=== PATIENT | female | born 1975 | race Caucasian/White ===

== ENCOUNTER 2019-01-20 13:44 | Emergency (ER) | payer BC ==
[2019-01-20] MEDS ORDERED: GI Cocktail Oral Solution 30 ML PO ONE (14:05)
--- NOTE | 2019-01-20 14:15 | EDM.PDOC ---
ED HPI GENERAL MEDICAL PROBLEM - General Chief Complaint: Cardiovascular Problem Stated Complaint: CHEST PAIN ANXIETY Time Seen by Provider: 01/20/19 13:50 Source of Information: Reports: Patient, Old Records, RN, RN Notes Reviewed History Limitations: Reports: No Limitations - History of Present Illness INITIAL COMMENTS - FREE TEXT/NARRATIVE: Patient presents to the ED at [facility] for the evaluation of chest pain that started last night. She contacted her PCP who recommended ED visit. Patient is not sure if her pain is true chest pain or anxiety. She was recently started on BuSpar. She is not sure if this is working effectively or not. No SOB. No abdominal complaints. Denies N/V/D. No focal neurological complaints. Patient states her chest pain is in the mid chest area. Does not radiate. No jaw or arm/shoulder pain. No history of any cardiac disease. Patient is not sure if her pain is from anxiety or not and wants it "checked out." Onset Date: 01/19/19 ED ROS GENERAL - Review of Systems Review Of Systems: See Below Constitutional: Denies: Fever, Chills Respiratory: Denies: Shortness of Breath, Cough Cardiovascular: Reports: Chest Pain. Denies: Lightheadedness, Palpitations GI/Abdominal: Denies: Abdominal Pain, Nausea, Vomiting Skin: Reports: No Symptoms Neurological: Reports: No Symptoms Psychiatric: Reports: Anxiety ED EXAM, GENERAL - Physical Exam Exam: See Below Exam Limited By: No Limitations General Appearance: Alert, No Apparent Distress Respiratory/Chest: No Respiratory Distress, Lungs Clear, Normal Breath Sounds Cardiovascular: Normal Peripheral Pulses, Regular Rate, Rhythm Peripheral Pulses: 2+: Radial (L), Radial (R) GI/Abdominal: Normal Bowel Sounds, Soft, Non-Tender Neurological: Alert, Oriented Psychiatric: Normal Affect, Normal Mood Skin Exam: Warm, Dry, Intact, Normal Color EKG INTERPRETATION EKG Date: 01/20/19 Time: 13:56 Rhythm: NSR Rate (Beats/Min): 101 [place]: Normal P-Wave: Present QRS: Normal NV/PQ Interval: 0.16 Comparison: NA - No Prior EKG EKG Interpretation Comments: 1. Sinus Tachycardia Course - Orders/Labs/Meds Orders: Active Orders 24 hr Category Date Time Status EKG 12 Lead [EKG Documentation Completion] [RC] STAT Care 01/20/19 14:05 Active Labs: Laboratory Tests 01/20/19 01/20/19 Range/Units 14:15 14:15 WBC 9.5 (4.0-10.0) x10^3/uL RBC 4.68 (4.00-5.50) x10^6/uL Hgb 13.8 (12.0-16.0) g/dL Hct 39.9 (33.0-47.0) % MCV 85.3 (78.0-93.0) fL MCH 29.5 (26.0-32.0) pg MCHC 34.6 (32.0-36.0) g/dL RDW Coeff of Yris 12.6 (10.0-15.0) % Plt Count 387 (130-400) x10^3/uL Neut % (Auto) 75.6 (50.0-80.0) % Lymph % (Auto) 16.9 L (25.0-50.0) % [place] % (Auto) 6.6 (2.0-11.0) % Eos % (Auto) 0.5 (0.0-4.0) % Baso % (Auto) 0.4 (0.2-1.2) % Sodium 139 (136-145) mmol/L Potassium 3.6 (3.5-5.1) mmol/L Chloride 102 (98-107) mmol/L Carbon Dioxide 27 (21-32) mmol/L Anion Gap 13.6 (10-20) mmol/L BUN 14 (7-18) mg/dL Creatinine 0.8 (0.55-1.02) mg/dL Est Cr Clr Drug Dosing TNP Estimated GFR (MDRD) > 60 Glucose 133 H (74-106) mg/dL Calcium 9.4 (8.5-10.1) mg/dL Magnesium 1.8 (1.8-2.4) mg/dL Creatine Kinase 74 (26-192) U/L Troponin I < 0.017 (<=0.056) ng/mL Meds: Medications Discontinued Medications Generic Name Dose Route Start Last Admin Trade Name Freq PRN Reason Stop Dose Admin Al Hydroxide/Mg Hydroxide 30 ml 01/20/19 14:05 01/20/19 14:31 Gi Cocktail PO 01/20/19 14:06 30 ml ONETIME ONE Administration Lorazepam 2 mg 01/20/19 14:42 Ativan PO 01/20/19 14:43 ONETIME ONE Departure - Departure Time of Disposition: 15:11 Disposition: Home, Self-Care 01 Reason for Transfer *Q: Other Condition: Good Clinical Impression: Panic anxiety syndrome Instructions: Panic Attack Referrals: Fani Hernandez MD [Primary Care Provider] - Forms: ED Department Discharge Additional Instructions: 1. Stay well hydrated and rest 2. See Dr. Hernandez as symptoms warrant - Problem List Review Problem List Initiated/Reviewed/Updated: Yes - My Orders Last 24 Hours: My Active Orders 01/20/19 14:05 EKG 12 Lead [EKG Documentation Completion] [RC] STAT - Assessment/Plan Last 24 Hours: My Active Orders 01/20/19 14:05 EKG 12 Lead [EKG Documentation Completion] [RC] STAT Assessment:: Anxiety Plan: Labs and EKG thoroughly discussed. No acute cardiac emergency. Will discharge home on PO Ativan. F/U with PCP as symptoms.
[2019-01-20] MEDS ORDERED: LORazepam 1 MG Tab PO ONE (14:42)
[2019-01-20 14:47] LABS: ANION GAP 13.6 mmol/L (10-20); CHLORIDE,CL 102 mmol/L (98-107); SODIUM,NA 139 mmol/L (136-145)
== END 2019-01-20 15:14 | disposition home or self-care (01) ==
LOC: VM.ED 13:44
DX: F41.0 Panic disorder [episodic paroxysmal anxiety] (principal)
CPT/HCPCS: 36415; 80048; 82550; 83735; 84484; 85025; 93005; 99285-25; A9270-GY